=== PATIENT | female | born 1980 | race Caucasian/White ===

== ENCOUNTER 2016-04-25 09:11 | Outpatient (CLI) ==
[2015-06-24 22:29] VITALS: BMI 47.2
[2016-04-25] MEDS ORDERED: IRON DEXTRAN IV STA ×2 (09:32)
[2016-04-25] MEDS ORDERED: SODIUM CHLORIDE IV STA ×2 (09:32)
[2016-04-25] MEDS ORDERED: SODIUM CHLORIDE IV ONE ×2 (10:00)
[2016-04-25] MEDS ORDERED: INFED IV ONE ×2 (10:00)
[2016-04-25 15:26] VITALS: BP 108/76; TEMP 98.1
== END 2016-04-25 09:12 | disposition home or self-care (01) ==
LOC: OPMED 09:11
PROVIDERS: ATTEND Family Medicine
DX: D50.9 Iron deficiency anemia, unspecified (principal)
CPT/HCPCS: 96365; 96366

== ENCOUNTER 2016-11-11 09:42 | Outpatient (CLI) ==
[2015-06-24 22:29] VITALS: BMI 47.2
--- NOTE | 2016-11-11 10:17 | CT ---
EXAM: CT Abdomen without contrast. CT Pelvis without contrast. HISTORY: Right flank pain, nephrolithiasis. COMPARISON: 07/23/2015. TECHNIQUE: Multiple axial images of the abdomen and pelvis were obtained without intravenous contra st. Images were reformatted in the coronal plane. FINDINGS: Please note that evaluation of the abdominal and pelvic structures is limited due to lack of intravenous contrast. The lung bases are clear. Degenerative changes present in the spine. Calcified stones seen in the gallbladder. The liver, pancreas, spleen, adrenal glands are unremarka ble. There is severe right hydronephrosis with associated right renal cortical thinning with a staghorn t ype calculus in the right renal pelvis measuring approximately 2.4 x 2.2 x 1.7 cm with internal dens ity of 1300 HU. There are are additional dependent calcifications within the dilated right renal co llecting system. No right ureteral or bladder calcifications identified. The left kidney is normal . Bladder is unremarkable. There is no evidence for bowel obstruction. The appendix is normal. Uterus demonstrates normal con tour. Interval repair of the previously noted ventral hernia. No free fluid or free air identified . 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 There is moderate right perinephric inflammation which is new . Correlate for superimposed pyelonephritis.
== END 2016-11-11 09:43 | disposition home or self-care (01) ==
LOC: RAD 09:42
PROVIDERS: ATTEND Family Medicine
DX: M54.5 Low back pain (principal); R31.0 Gross hematuria; Z87.442 Personal history of urinary calculi
CPT/HCPCS: 74176